=== PATIENT | female | born 1995 | race African-American/Black ===

== ENCOUNTER 2021-02-27 10:04 | Day surgery (SDC) | payer OTHER ==
[2021-02-27] MEDS ORDERED: Ringers Lactate 1,000 ML IV ONE ×2 (10:28→12:37)
[2021-02-27] MEDS ORDERED: CELECOXIB 100 MG CAPSULE ONE (10:39)
[2021-02-27] MEDS ORDERED: ACETAMINOPHEN 500 MG TAB ONE (10:39)
[2021-02-27] MEDS ORDERED: ONDANSETRON 4 MG/2 ML VIAL ONE ×2 (11:25→12:53)
[2021-02-27] MEDS ORDERED: ROCURONIUM 50 MG/5 ML VIAL IV ONE (11:25)
[2021-02-27] MEDS ORDERED: MIDAZOLAM HCL 2 MG/2 ML INJ ONE (11:25)
[2021-02-27] MEDS ORDERED: propofoL 200 MG/20 ML VIAL IV ONE (11:25)
[2021-02-27] MEDS ORDERED: dexAMETHasone 10 MG/ML VIAL ONE (11:25)
[2021-02-27] MEDS ORDERED: FENTANYL CITR 250 MCG/5 ML ONE (11:25)
[2021-02-27] MEDS ORDERED: LIDOCAINE 2% MPF 5 ML VIAL ONE (11:25)
[2021-02-27] MEDS: BUPIVACAINE 0.5% PF 10 ML VIAL ONE ×2 (11:31→11:55)
[2021-02-27] MEDS ORDERED: SUCCINYLCHOLINE 20 MG/ML (10 ML) IV ONE (11:35)
--- NOTE | 2021-02-27 12:28 | P.OP ---
Date of Service: 02/27/21 Preoperative diagnosis: Chronic tonsillitis, Tonsillolithiasis Postoperative diagnosis: Same Procedure: Tonsillectomy Anesthesia: General via endotracheal tube IV fluids: 900 ml Estimated blood loss: 5 mL Specimen: Bilateral tonsils Findings: Significantly inflamed, scarred, cryptic tonsils with multiple tonsil stones Implants: None Indication: patient with persistent symptoms and findings in spite of good medical management. Details of operation: The patient was brought to the operating room and placed under general anesthesia via oral endotracheal tube. The head of bed was turned 90 degrees. A shoulder roll was placed and the neck was extended. A head drape was applied. The McIvor mouthgag was placed and suspended from the Jean stand. The oxygen concentration was confirmed with the anesthesiologist and was less than 40%. Weight-based dexamethasone was administered by the anesthesiologist. The soft palate was palpated and there was no submucous cleft. A red rubber catheter was placed in the nose and the tip withdrawn through the mouth and secured to the head drape for retraction of the soft palate. The tonsils were noted to be moderate in size, with significant submucosal component and deep crypts with tonsil stones. The left tonsil was grasped with a straight Allis clamp. The Bovie electrocautery was used to incise the mucosa over the anterior pillar and identified the tonsillar capsule. The tonsil was dissected using cautery and blunt dissection until free from soft tissue attachments. A tonsil ball was placed to aid in hemostasis. The right tonsil was removed in a similar manner. Bleeding in the midportion of the right tonsillar fossa was clamped with a right angle and ligated with a 0 Vicryl Endoloop The tonsillar fossa's were injected with half percent Marcaine without epinephrine a total of 2.5 milliliters was used. The oropharynx was irrigated with cold saline. After suctioning, a [place] sump orogastric tube was passed for decompression of the stomach. The red rubber catheter was removed and used to suction the oropharynx, nasopharynx, and nasal cavities. The McIvor mouthgag was removed. There was no evidence of injury to the teeth, lips, or tongue. The mandible was mobile. The patient was then awakened from anesthesia and extubated in the operating room, taken to the recovery room in stable condition. Disposition: The patient will be discharged home later today in the care of their family with written postoperative instructions and appropriate pain medications. They will follow-up in Dr. Mtz's office in approximately 1 month. They are instructed to contact Dr. Mtz's office for any bleeding or other concerns.
[2021-02-27 12:35] VITALS: O2SAT 100
[2021-02-27] MEDS: HYDROMORPHONE HCL 1 MG/ML INJ ONE ×2 (12:55→13:00)
[2021-02-27] MEDS ORDERED: HYDROCOD 2.5mg-ACETAMIN 108mg/5mL Soln ONE (13:28)
[2021-02-27 16:41] VITALS: BP 120/78; TEMP 97.7
== END 2021-02-27 14:30 | disposition home or self-care (01) ==
LOC: OR 10:04
PROVIDERS: ATTEND Otolaryngology
PROC: 0CTPXZZ Resection of Tonsils, External Approach (ICD-10-PCS; principal; 2021-02-27 11:15)
DX: J35.01 Chronic tonsillitis (principal); J35.8 Other chronic diseases of tonsils and adenoids
CPT/HCPCS: 81025; 88304; 42826; J2704; J0330; J2250; J3010; J1100; J1170; J7120 ×2; J2405 ×2